=== PATIENT | female | born 1980 | race Caucasian/White ===

== ENCOUNTER 2025-05-30 14:29 | Outpatient (CLI) | payer OTHER, SELFPAY | END 2025-05-30 14:30 | disposition home or self-care (01) | LOC: WOUND 14:37 | PROVIDERS: Visit Provider Surgery | DX: I87.312 Chronic venous hypertension (idiopathic) with ulcer of left lower extremity (principal); L97.822 Non-pressure chronic ulcer of other part of left lower leg with fat layer exposed | CPT/HCPCS: 11042; G0463 ==

== ENCOUNTER 2025-06-13 14:44 | Outpatient (CLI) | payer OTHER, SELFPAY | END 2025-06-13 14:45 | disposition home or self-care (01) | LOC: WOUND 14:44 | PROVIDERS: Visit Provider Physician Assistant | DX: I87.312 Chronic venous hypertension (idiopathic) with ulcer of left lower extremity (principal); L97.822 Non-pressure chronic ulcer of other part of left lower leg with fat layer exposed | CPT/HCPCS: 97597; 97598 ==